=== PATIENT | female | born 1950 | race Hispanic/Latino ===

== ENCOUNTER 2022-12-01 15:16 | Emergency (ER) | payer MEDICARE ==
[~2022-12-01] VITALS: Ht 160 cm; Wt 59.0 kg
[2022-12-01 15:36] VITALS: BP 153/66; PULSE 80; RESP 16; O2SAT 100
== END 2022-12-01 18:01 | disposition home or self-care (01) ==
LOC: EDH 15:16
DX: S93.402A Sprain of unspecified ligament of left ankle, initial encounter (principal); I10 Essential (primary) hypertension; X50.1XXA Overexertion from prolonged static or awkward postures, initial encounter; Y93.89 Activity, other specified; Y92.89 Other specified places as the place of occurrence of the external cause; Y99.8 Other external cause status
CPT/HCPCS: 73600

== ENCOUNTER → 2022-12-06 | Outpatient (CLI) | payer MEDICARE | END | disposition home or self-care (01) | LOC: RAH 09:54 | PROVIDERS: ATTEND Nurse Practitioner Family | DX: K80.20 Calculus of gallbladder without cholecystitis without obstruction (principal); R10.9 Unspecified abdominal pain; N28.1 Cyst of kidney, acquired; R10.2 Pelvic and perineal pain; Z90.710 Acquired absence of both cervix and uterus | CPT/HCPCS: 76700; 76856 ==